=== PATIENT | male | born 1980 | race African-American/Black ===

== ENCOUNTER 2017-01-30 09:55 | Emergency (ER) | payer OTHER | END 2017-01-30 10:45 | disposition home or self-care (01) | LOC: CFTX 09:55 → CED 09:55 → CFTX 10:35 | DX: S61.012A Laceration without foreign body of left thumb without damage to nail, initial encounter (principal); W26.0XXA Contact with knife, initial encounter; Y92.009 Unspecified place in unspecified non-institutional (private) residence as the place of occurrence of the external cause | CPT/HCPCS: 12001; 99283 ==